=== PATIENT | female | born 1980 | race Caucasian/White ===

== ENCOUNTER 2024-02-12 16:24 | Emergency (ER) | payer MEDICAID, SELFPAY ==
--- NOTE | ~2024-02-12 | CT_ITS ---
EXAMINATION: CT HEAD WITHOUT CONTRAST CT CERVICAL SPINE WITHOUT CONTRAST CLINICAL INFORMATION: OD, possible fall COMPARISON: None. TECHNIQUE: Imaging was performed from the skull base to vertex without intravenous administration of contrast. In addition, helical noncontrast CT imaging was acquired through the cervical spine and source images were reviewed along with axial reconstructions and sagittal and coronal MPRs. [This CT examination was performed using dose optimization techniques as appropriate, variously including the following: *Automated exposure control *Adjustment of mA and/or kV according to patient size (this includes techniques or standardized protocols for targeted exams where dose is matched to indication/reason for exam; i.e. extremities or head) *Use of iterative reconstruction technique] DLP: 1159 mGy-cm FINDINGS: HEAD: No intracranial mass, hemorrhage, or midline shift is visualized. The ventricles and sulci are proportional. No extra-axial collections are identified. The paranasal sinuses and mastoid air cells are well aerated. CERVICAL SPINE: There is no evidence of acute cervical spine fracture. Vertebral bodies remain normal in height. Cervical vertebrae have normal alignment. Cervical disc heights are normal. Facet joints are normal. No pre- or paravertebral soft tissue abnormality is identified. Limited assessment of the lung apices is unremarkable. CT/CT head/brain wo IV con IMPRESSION: 1. No acute intracranial pathology. 2. No CT evidence of acute cervical spine fracture or traumatic subluxation
--- NOTE | ~2024-02-12 | CT_ITS ---
EXAMINATION: CT CHEST WITH CONTRAST CLINICAL INFORMATION: Syncope versus overdose. Tachycardia with history of PE COMPARISON: None available. TECHNIQUE: Multidetector volumetric CT imaging of the chest was obtained after the administration of 65 mL of Omnipaque 350 intravenous contrast without immediate adverse reactions. Axial MIP volume rendering provided. Sagittal and coronal reformatted images were obtained. This CT examination was performed using dose optimization techniques as appropriate, variously including the following: *Automated exposure control *Adjustment of mA and/or kV according to patient size (this includes techniques or standardized protocols for targeted exams where dose is matched to indication/reason for exam; i.e. extremities or head) *Use of iterative reconstruction technique DLP: 247 mGy-cm FINDINGS: LUNGS: Minimal dependent linear atelectasis at the right lung base. No dense consolidation or focal airspace disease otherwise. No nodularity MEDIASTINUM: The mediastinum is normal. Specifically I do not appreciate any obvious central PTE although the examination is not timed to evaluate the pulmonary arteries PLEURA: There is no pleural effusion. No pleural mass or thickening. AXILLA: No lymphadenopathy. UPPER ABDOMEN: Diffuse fatty infiltration of the liver. OSSEOUS STRUCTURES: Unremarkable. CT/CT chest w IV con IMPRESSION: 1. Minimal dependent atelectasis at the right lung base. No dense consolidation or focal airspace disease otherwise. Specifically I do not appreciate any obvious central PTE although the examination is not timed to evaluate the pulmonary arteries. 2. Diffuse fatty infiltration of the liver. Fleischner guidelines were followed.
--- NOTE | ~2024-02-12 | CT_ITS ---
EXAMINATION: CT HEAD WITHOUT CONTRAST CT CERVICAL SPINE WITHOUT CONTRAST CLINICAL INFORMATION: OD, possible fall COMPARISON: None. TECHNIQUE: Imaging was performed from the skull base to vertex without intravenous administration of contrast. In addition, helical noncontrast CT imaging was acquired through the cervical spine and source images were reviewed along with axial reconstructions and sagittal and coronal MPRs. [This CT examination was performed using dose optimization techniques as appropriate, variously including the following: *Automated exposure control *Adjustment of mA and/or kV according to patient size (this includes techniques or standardized protocols for targeted exams where dose is matched to indication/reason for exam; i.e. extremities or head) *Use of iterative reconstruction technique] DLP: 1159 mGy-cm FINDINGS: HEAD: No intracranial mass, hemorrhage, or midline shift is visualized. The ventricles and sulci are proportional. No extra-axial collections are identified. The paranasal sinuses and mastoid air cells are well aerated. CERVICAL SPINE: There is no evidence of acute cervical spine fracture. Vertebral bodies remain normal in height. Cervical vertebrae have normal alignment. Cervical disc heights are normal. Facet joints are normal. No pre- or paravertebral soft tissue abnormality is identified. Limited assessment of the lung apices is unremarkable. CT/CT cervical spine wo IV con IMPRESSION: 1. No acute intracranial pathology. 2. No CT evidence of acute cervical spine fracture or traumatic subluxation
[2024-02-12 16:30] VITALS: BP 126/82; PULSE 110; O2SAT 98
[2024-02-12 16:43] VITALS: BP 118/73; PULSE 102; RESP 16; TEMP 37.3; O2SAT 96; BMI 34.1
--- NOTE | 2024-02-12 16:57 | ECG_ITS ---
Test Reason : OVERDOSE Blood Pressure : / mmHG Vent. Rate : 096 BPM Atrial Rate : 096 BPM P-R Int : 162 ms QRS Dur : 082 ms QT Int : 386 ms P-R-T Axes : 038 032 023 degrees QTc Int : 487 ms Normal sinus rhythm Prolonged QT Abnormal ECG No previous ECGs available Referred By: Amanda Dowd Electronically Signed By:YORDY MOSLEY MD
[2024-02-12 17:16] LABS: MANUAL DIFF FLAG NO
[2024-02-12 17:19] LABS: Basophils Percent Auto 0.3 % (0-2); Eosinophils Absolute Auto 0.1 X10*3/uL (0.0-0.4); Eosinophils Percent Auto 1.1 % (0-4); Hematocrit 38.3 % (37.0-47.0); Hemoglobin 13.2 g/dl (12.0-16.0); Imm Gran Abs Auto 0.02 X10*3/uL (0.00-0.03); Imm Gran Pct Auto 0.2 % (0.0-0.4); Lymphocytes Absolute Auto 1.1 X10*3/uL (1.2-4.9); Lymphocytes Percent Auto 11.2 % (20-40); Mean Corpuscular HGB Conc 34.5 g/dl (31.0-35.0); Mean Platelet Volume 9.7 fL (9.4-12.3); Monocytes Absolute Auto 0.3 X10*3/uL (0.1-1.2); Monocytes Percent Auto 3.4 % (2-11); Neutrophils Percent Auto 83.8 % (45-73); Platelet Count 221 X10*3/uL (160-400); Red Cell Distribution Width 14.6 % (11.0-16.0); White Blood Count 9.5 X10*3/uL (4.8-10.8)
[2024-02-12 17:41] LABS: Alanine Aminotransferase 37 U/L (0-31); Alkaline Phosphatase 78 U/L (39-117); Anion Gap 13 (12-20); Aspartate Amino Transferase 36 U/L (5-31); Bilirubin Direct 0.2 mg/dL (0.0-0.5); Bilirubin Total 0.4 mg/dL (0.0-1.0); Blood Urea Nitrogen 13 mg/dL (9-16); Carbon Dioxide 24 mmol/L (22-29); Chloride 107 mmol/L (96-108); Creatinine Clr Calc Pharmacy 89.2; Estimated Glomerular Filt Rate > 60; Ethanol < 10 mg/dL; Glucose Random 156 mg/dL (60-115); HCG Quantitative < 2 mIU/mL; Potassium 3.4 mmol/L (3.3-5.1); Sodium 141 mmol/L (135-145); Total Protein 6.5 g/dL (6.5-8.0)
--- NOTE | 2024-02-12 17:45 | PC.NURSE ---
pt biba from home d/t accidental overdose. pt verbalizes relapsing after a few months. 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 pt does not recall event - states she woke up on the bathroom floor after PD administered 12mg narcan. pt unaware on if she hit her head but verbalizes 5/10 LUKE. denies change in vision/lightheadedness/dizziness. c-collar placed by EMS. pt searched by security d/t pt remaining in c-collar. climate change risk assessor not performed/belongings remain on pt. labs obtained/ekg performed by tech.pt waiting for CT to be completed at this time. no sob/wob noted. respirations even/unlabored. plan of care ongoing. call aviles placed within reach.
[2024-02-12 18:00] VITALS: BP 125/55; PULSE 99; RESP 18; TEMP 36.9; O2SAT 97
--- NOTE | 2024-02-12 18:32 | ED_ITS ---
HPI - Overdose General Chief Complaint: Overdose Stated Complaint: OD Time Seen by Provider: 02/12/24 16:38 Source: patient and other ( significant other) Mode of arrival: ambulatory Limitations: no limitations History of Present Illness ED Provider: Dr. Amanda Dowd HPI Narrative: patient comes to the emergency room after overdosing. Patient states that earlier today she was in the bathroom at home smoking crack cocaine. Patient woke up on the floor after patient is family and significant other found her in the bathroom unresponsive. Patient had pulse and was breathing. PD was called, they administered 12 mg of Narcan, patient woke up immediately. Patient is adamant that she did not need to hurt herself, was unaware that were any narcotics in the cocaine. Patient states that she had been cleaned for months and recently relapsed. Patient states that she has not sure if she passed out or hit her head. Patient denies any seizure disorder. Related Data Allergies Allergy/AdvReac Type Severity Reaction Status Date / Time codeine [CODEINE] Allergy Unknown HIVES Verified 02/12/24 16:43 levofloxacin [From Levaquin] Allergy Hives Verified 02/12/24 16:43 naproxen [From Aleve] Allergy Anaphylaxis Verified 02/12/24 16:43 Review of Systems 2 Review of Systems: Constitutional : No Weight loss, No Fever, No Chills, No Night Sweats, No Fatigue, No Malaise ENT/Mouth : No Hearing loss, No Ear Pain, No Nasal Congestion, No Sinus Pain, No Hoarseness, No sore throat, No Rhinorrhea, No Swallowing Difficulty Eyes: No Eye Pain, No Swelling, No Redness, No Foreign Body, No Discharge, No Vision Changes Cardiovascular : No Chest Pain, No SOB, No Dyspnea on Exertion, No Orthopnea, No Edema, No Palpitations Respiratory : No Cough, No Sputum, No Wheezing, No Smoke Exposure, No Dyspnea Gastrointestinal : No Nausea, No Vomiting, No Diarrhea, No Constipation, No abdominal Pain, No Hematochezia, No Melena Genitourinary : no irregular bleeding, No Dysuria, No Urinary Frequency, No Hematuria, No Urinary Incontinence, No Urgency, No Flank Pain, No Urinary Flow Changes, No Hesitancy Musculoskeletal : No joint pain, No Myalgias, No Joint Swelling Skin : No Skin Lesions, No rash Neuro : No Weakness, No Numbness, No Paresthesias, 1 episode of loss of consciousness, most likely overdose. No Dizziness, No Headache Psych : No Anxiety/Panic, No Depression, No SI/HI/AH/VH, Admits to polysubstance abuse Heme/Lymph: No Bruising, No Bleeding,No Lymphadenopathy Endocrine : No Polyuria, No Polydipsia, No Temperature Intolerance PMF Past Medical History Medical History (Updated 02/12/24 @ 20:50 by Amanda Dowd MD) Pulmonary embolism Polysubstance abuse Social History Social History Smoked in Last 30 Days: No Use of substances other than those prescribed or required for medical reasons: Yes Substance Use Type: Crack/Cocaine Advance Directives: No Advance Directives Information Provided: No Do you have a plan to hurt others: No Plan Patient : No Physical Exam 2 Vital Signs: Vital Signs: Last Vital Signs Temp 98.4 F 02/12/24 18:00 Pulse 99 02/12/24 18:00 Resp 18 02/12/24 18:00 BP 125/55 L 02/12/24 18:00 Pulse Ox 97 02/12/24 18:00 O2 Del Method Room Air 02/12/24 18:00 BMI result Body Mass Index 34.1 Const: Other: Appearance: Alert. Oriented X3. No acute distress. Eyes: Pupils equal, round and reactive to light. ENT: Pharynx normal. Neck: on C-collar, no palpable step-offs, no pain to palpation in the cervical spine. CVS: Normal heart rate and rhythm. Pulses normal. Normal S1 and S2 Respiratory: No respiratory distress. Breath sounds normal. No Wheezing. No rales Abdomen: Soft and nontender. No rigidity. No distention. Skin: Skin warm and dry. Normal skin color. Normal skin turgor. Extremities: No lower extremity edema. No Lacerations. No Rash Neuro: Oriented X 3. No motor deficit. No sensory deficit. Moving all extremities. No slurred speech. CN 2 through 12 grossly intact Psych: calm, cooperative, normal affect Medications Administered Discontinued Medications Generic Name Dose Route Start Last Admin Trade Name Freq PRN Reason Stop Dose Admin Iohexol 65 ml 02/12/24 19:38 02/12/24 19:39 Iohexol 350 Mg/Ml 100 Ml Infus..Btl IV 02/12/24 19:39 65 ml ONCE ONE Administration Medical Decision Making Medical Decision Making MDM Narrative: - My interpretation of head CT: No intracranial bleed. - My interpretation of labs: Normal hematology and chemistry. urine toxicology pending, ETOH negative, urine toxicology positive for opiates, fentanyl and cocaine - my interpretation of CT scan of the chest, no obvious PE - patient is loss of consciousness secondary to overdose most likely. - Patient is now awake, alert and oriented x3, denies any suicidal or homicidal ideation. -sude/care Team consult declined - patient awake, alert and oriented x3, ambulatory without assistance, vitals normal, no oxygen desaturation Differential Diagnosis Differential Diagnoses: The differential diagnosis associated with the presentation includes ( PE, ACS, overdose) Admission/Observation Consideration of admission/observation: Escalation of care including admission/observation considered ( given patient's past medical history and presentation, observation considered) Lab Data [facility] Lab Attestation statement: I reviewed the patient's lab results. 02/12/24 17:12 02/12/24 17:12 Labs: Lab Results 02/12/24 02/12/24 02/12/24 Range/Units 17:12 18:48 19:15 WBC 9.5 (4.8-10.8) X10*3/uL RBC 4.40 (4.20-5.50) X10*6/uL Hgb 13.2 (12.0-16.0) g/dl Hct 38.3 (37.0-47.0) % MCV 87.0 (80.0-98.0) fL MCH 30.0 (27.0-33.0) pg MCHC 34.5 (31.0-35.0) g/dl RDW 14.6 (11.0-16.0) % Plt Count 221 (160-400) X10*3/uL MPV 9.7 (9.4-12.3) fL Immature Gran % (Auto) 0.2 (0.0-0.4) % Neut % (Auto) 83.8 H (45-73) % Lymph % (Auto) 11.2 L (20-40) % [place] % (Auto) 3.4 (2-11) % Eos % (Auto) 1.1 (0-4) % Baso % (Auto) 0.3 (0-2) % Lymph # (Auto) 1.1 L (1.2-4.9) X10*3/uL [place] # (Auto) 0.3 (0.1-1.2) X10*3/uL Eos # (Auto) 0.1 (0.0-0.4) X10*3/uL Baso # (Auto) 0.0 (0.0-0.2) X10*3/uL Abs Immat Gran (auto) 0.02 (0.00-0.03) X10*3/uL Absolute Neuts (auto) 8.0 (2.0-8.3) x10*3/uL Absolute Nucleated RBC 0.000 (0.0-0.012) X10*3/uL Nucleated RBC % (auto) 0.0 (0.0-0.2) /100WBC PT 12.2 (11.1-13.3) SEC INR 1.0 (0.9-1.1) D-Dimer High Sensitivty 299 NG/ML Sodium 141 (135-145) mmol/L Potassium 3.4 (3.3-5.1) mmol/L Chloride 107 (96-108) mmol/L Carbon Dioxide 24 (22-29) mmol/L Anion Gap 13 (12-20) BUN 13 (9-16) mg/dL Creatinine 0.87 (0.5-1.4) mg/dL Estim Creat Clear Calc 89.2 Estimated GFR > 60 Random Glucose 156 H (60-115) mg/dL Calcium 9.0 (8.4-10.2) mg/dL Magnesium 2.0 (1.6-2.6) mg/dL Total Bilirubin 0.4 (0.0-1.0) mg/dL Direct Bilirubin 0.2 (0.0-0.5) mg/dL AST 36 H (5-31) U/L ALT 37 H (0-31) U/L Alkaline Phosphatase 78 (39-117) U/L Troponin I High Sens 12.5 (<3.5-17.0) ng/L Total Protein 6.5 (6.5-8.0) g/dL Albumin 4.0 (3.5-5.0) g/dL Beta HCG, Quant < 2 mIU/mL Urine Opiates Screen POSITIVE H (Not Detect) Ur Buprenorphine Scrn Not Detected (Not Detect) ng/mL Ur Oxycodone Screen Not Detected (Not Detect) ng/mL Urine Methadone Screen Not Detected (Not Detect) ng/mL Urine Fentanyl Screen POSITIVE H (Not Detect) Ur Barbiturates Screen Not Detected (Not Detect) Ur Phencyclidine Scrn Not Detected (Not Detect) Ur Amphetamines Screen Not Detected (Not Detect) U Benzodiazepines Scrn Not Detected (Not Detect) Urine Cocaine Screen POSITIVE H (Not Detect) U Marijuana (THC) Screen Not Detected (Not Detect) Ethyl Alcohol < 10 mg/dL Independent Interpretation I performed an independent interpretation of an: CT Scan Radiology Impression Discussion of test interpretation with radiology: I have reviewed the radiologist's reading. Radiologist Impression: FINDINGS: LUNGS: Minimal dependent linear atelectasis at the right lung base. No dense consolidation or focal airspace disease otherwise. No nodularity MEDIASTINUM: The mediastinum is normal. Specifically I do not appreciate any obvious central PTE although the examination is not timed to evaluate the pulmonary arteries PLEURA: There is no pleural effusion. No pleural mass or thickening. AXILLA: No lymphadenopathy. UPPER ABDOMEN: Diffuse fatty infiltration of the liver. OSSEOUS STRUCTURES: Unremarkable. CT/CT chest w IV con IMPRESSION: 1. Minimal dependent atelectasis at the right lung base. No dense consolidation or focal airspace disease otherwise. Specifically I do not appreciate any obvious central PTE although the examination is not timed to evaluate the pulmonary arteries. 2. Diffuse fatty infiltration of the liver Independent Historian Clinical information obtained from an independent historian. History obtained from or confirmed by: Other ( significant other) Discharge Plan Discharge Clinical Impression: Polysubstance abuse, Accidental overdose Patient Disposition: Home, Self-Care Instructions: Adult Overdose (ED), Polysubstance Abuse (ED) Additional Instructions: Please follow-up with your primary care physician tomorrow. If you have any worsening or new symptoms, please return to the emergency room or call 911 Print Language: Greek
[2024-02-12 18:49] LABS: Troponin-I High Sensitivity 12.5 ng/L (<3.5-17.0)
--- NOTE | 2024-02-12 18:55 | PC.NURSE ---
pt no longer in c-collar at this time. pt ambulatory to the restroom independently w/ steady gait. pt changed over. belongings placed in decon. urine obtained/sent to lab. labs obtained/sent to lab. plan of care ongoing.
[2024-02-12 19:31] LABS: Prothrombin Time 12.2 SEC (11.1-13.3)
[2024-02-12 19:33] LABS: Amphetamine Screen Urine Not Detected (Not Detect); Barbiturates, Urine Not Detected (Not Detect); Benzodiazepines Screen Urine Not Detected (Not Detect); Buprenorphine Scr Not Detected (Not Detect); Cannabinoid Screen Urine Not Detected (Not Detect); Cocaine Screen Urine POSITIVE (Not Detect); Fentanyl, urine POSITIVE (Not Detect); Methadone Screen, Urine Not Detected (Not Detect); Opiate Screen Urine POSITIVE (Not Detect); Oxycodone Screen Urine Not Detected (Not Detect); Phencyclidine Screen Urine Not Detected (Not Detect)
[2024-02-12 19:33] LABS: D Dimer High Sensitivity 299 NG/ML
[2024-02-12] MEDS: iohexoL 350 MG/ML 100 ML INFUS..BTL 65 ML IV (19:39)
[2024-02-12 20:00] VITALS: BP 126/62; PULSE 87; RESP 16; TEMP 36.9; O2SAT 99
[2024-02-12 21:11] VITALS: BP 126/62; PULSE 87; RESP 16; TEMP 36.9; O2SAT 99
== END 2024-02-12 21:12 | disposition home or self-care (01) ==
PROVIDERS: Emergency Provider Emergency Medicine
DX: S09.90XA Unspecified injury of head, initial encounter (principal); W01.10XA Fall on same level from slipping, tripping and stumbling with subsequent striking against unspecified object, initial encounter; T40.5X1A Poisoning by cocaine, accidental (unintentional), initial encounter; R06.02 Shortness of breath; F14.10 Cocaine abuse, uncomplicated; R51.9 Headache, unspecified; R10.2 Pelvic and perineal pain; R07.89 Other chest pain; M54.6 Pain in thoracic spine; R94.31 Abnormal electrocardiogram [ECG] [EKG]; M54.2 Cervicalgia; Y93.9 Activity, unspecified; Y92.9 Unspecified place or not applicable; Y99.8 Other external cause status; Z51.81 Encounter for therapeutic drug level monitoring; Z79.899 Other long term (current) drug therapy
CPT/HCPCS: 36415; 70450; 71260; 72125; 80048; 80076; 80307; 83735; 84484; 84702; 85025; 85379; 85610; 93005; 99284; 99285; Q9967

== ENCOUNTER → 2024-02-12 16:57 | Outpatient (BNV) | payer MEDICAID, SELFPAY | PROVIDERS: Emergency Provider Emergency Medicine; Visit Provider Internal Medicine Cardiovascular Disease | DX: R94.31 Abnormal electrocardiogram [ECG] [EKG] (principal) | CPT/HCPCS: 93010 ==

== ENCOUNTER 2024-03-11 15:56 | Emergency (ER) | payer OTHER, SELFPAY ==
[2024-03-11 16:01] VITALS: BP 131/81; PULSE 112; O2SAT 97; BMI 31.2
[2024-03-11 16:14] VITALS: BP 144/73; PULSE 101; RESP 16; TEMP 36.9; O2SAT 98
--- NOTE | 2024-03-11 16:14 | PC.NURSE ---
pt changed over into hospital attire by security - belongings obtained/placed in decon.
--- NOTE | 2024-03-11 16:14 | PC.NURSE ---
pt biba from home d/t accidental overdose after smoking dime bag of crack/fentanyl. family administered 4mg narcan intranasally. denies SI/HI. a&ox4. vss and up to date aside from being slightly tachy. pt denies pain. has no complaints. pt changed over by secuirty/changed into hospital attire. belongings placed in decon. pt verbalizes to this creative services writer that she is interested in detox services. pt waiting to be seen by ED provider. no sob/wob noted. respirations even/unlabored. plan of care ongoing.
--- NOTE | 2024-03-11 16:29 | ECG_ITS ---
Test Reason : OVERDOSE Blood Pressure : / mmHG Vent. Rate : 083 BPM Atrial Rate : 083 BPM P-R Int : 156 ms QRS Dur : 074 ms QT Int : 384 ms P-R-T Axes : 034 027 019 degrees QTc Int : 451 ms Normal sinus rhythm Cannot rule out Anterior infarct , age undetermined - could be lead positioning, body habitus Abnormal ECG When compared with ECG of 12-FEB-2024 16:58, No significant change was found Referred By: Jacob Montano Electronically Signed By:CINDI RUANO
--- NOTE | 2024-03-11 16:48 | PC.NURSE ---
labs/urine obtained/sent to lab. ekg performed by [facility]. pt continues to rest in no apparent distress. no sob/wob noted. respirations even/unlabored. plan of care ongoing.
--- NOTE | 2024-03-11 16:50 | ED.GENADULT ---
HPI - General Adult General Chief complaint: Overdose Stated complaint: OD, possibly laced crack, 4 doses of narcan by fam Time Seen by Provider: 03/11/24 16:09 Source: patient, RN notes reviewed and old records reviewed Mode of arrival: ambulatory Limitations: no limitations History of Present Illness ED Provider: Dusty HPI narrative: 43-year-old female presents for evaluation substance abuse. Patient reports that she was smoking crack. She believes that the crack cocaine may have been laced with fentanyl. She was found unresponsive by family and given nasal Narcan 4 mg Patient arrives awake, and oriented. She denies any intent to self-harm. She has no medical complaints at this time. She is interested in speaking to somebody regarding detox Related Data Allergies Allergy/AdvReac Type Severity Reaction Status Date / Time codeine [CODEINE] Allergy Unknown HIVES Verified 03/11/24 16:02 levofloxacin [From Levaquin] Allergy Hives Verified 03/11/24 16:02 naproxen [From Aleve] Allergy Anaphylaxis Verified 03/11/24 16:02 Review of Systems Constitutional: Constitutional: Denies body ache(s), Denies chills, Denies fever(s) and Denies headache(s) Eyes: Eyes: Denies blurry vision ENT: Denies vertigo, Denies dizziness and Denies headache(s) Cardiovascular: Cardiovascular: Denies chest pain and Denies chest pain at rest Respiratory: Respiratory: Denies cough Gastrointestinal: Gastrointestinal: Denies abdominal pain and Denies vomiting Musculoskeletal: Musculoskeletal: Denies back pain Integumentary/Breasts: Skin/Breast: Denies rash Neurologic: Denies vertigo, Denies dizziness and Denies headache(s) [facility] Past Medical History Medical History (Updated 03/11/24 @ 17:54 by Jacob Montano) Pulmonary embolism Polysubstance abuse Social History Social History Substance Use Type: Crack/Cocaine Advance Directives: No Advance Directives Information Provided: No Do you have a plan to hurt others: No Plan Physical Exam ED Vital Signs: Vital Signs - 24 hr 03/11/24 16:14 Temperature 98.4 F Pulse Rate 101 H Respiratory Rate 16 Blood Pressure 144/73 H Pulse Oximetry 98 Oxygen Delivery Method Room Air BMI result Body Mass Index 31.2 Const General: healthy appearing, comfortable, no acute distress, alert and awake Nutritional Appearance: well nourished Orientation/consciousness: patient oriented x3 HENMT Head: Yes normocephalic and Yes atraumatic Eyes Eyelids: Yes eyelids normal Conjunctivae: conjunctivae normal Sclerae: sclerae normal Corneas: corneas normal Pupils: Equal, round and reactive pupils present EOM: EOMs intact bilaterally Neck Neck: Yes full ROM Resp Effort & Inspection: normal respiratory effort, able to speak in complete sentences, no audible wheezes and not labored Auscultation: clear to auscultation bilaterally GI Inspection: No distended Palpation (GI): Soft to palpation, not firm, nontender, no guarding and not rigid Skin General skin exam: elasticity normal Neuro General: patient oriented x3 Cranial nerves: Yes Equal, round and reactive pupils present and Yes Bilaterally intact EOM present Cognition (Neuro): normal cognition Extrem Other: Moving all extremities well without any obvious deformities Course Reevaluation(s) Reevaluation #1: Patient remains awake, alert and oriented. She has not yet met with the care team or addiction medicine but is requesting discharge. She has never been suicidal, she is comfortable seeking detox on her own. She is willing to accept him Narcan. All of her questions were answered and she is stable for discharge Time: 17:52 Medical Decision Making Medical Decision Making MDM Narrative: 43-year-old female presents for evaluation of substance abuse. She was given Narcan, she is awake alert oriented with stable vital signs she has no somatic complaints. She is interested in detox, plan for medical clearance and addiction medicine consult Differential Diagnosis Differential Diagnoses: The differential diagnosis associated with the presentation includes Cocaine abuse Fentanyl overdose Opiate overdose Polysubstance abuse Depression Anxiety Lab Data 03/11/24 17:01 03/11/24 16:45 Labs: Lab Results 03/11/24 03/11/24 Range/Units 16:45 17:01 WBC 8.8 (4.8-10.8) X10*3/uL RBC 4.87 (4.20-5.50) X10*6/uL Hgb 14.5 (12.0-16.0) g/dl Hct 43.6 (37.0-47.0) % MCV 89.5 (80.0-98.0) fL MCH 29.8 (27.0-33.0) pg MCHC 33.3 (31.0-35.0) g/dl RDW 14.8 (11.0-16.0) % Plt Count 238 (160-400) X10*3/uL MPV 9.9 (9.4-12.3) fL Immature Gran % (Auto) 0.2 (0.0-0.4) % Neut % (Auto) 82.7 H (45-73) % Lymph % (Auto) 10.7 L (20-40) % [place] % (Auto) 4.8 (2-11) % Eos % (Auto) 1.3 (0-4) % Baso % (Auto) 0.3 (0-2) % Lymph # (Auto) 0.9 L (1.2-4.9) X10*3/uL [place] # (Auto) 0.4 (0.1-1.2) X10*3/uL Eos # (Auto) 0.1 (0.0-0.4) X10*3/uL Baso # (Auto) 0.0 (0.0-0.2) X10*3/uL Abs Immat Gran (auto) 0.02 (0.00-0.03) X10*3/uL Absolute Neuts (auto) 7.3 (2.0-8.3) x10*3/uL Absolute Nucleated RBC 0.000 (0.0-0.012) X10*3/uL Nucleated RBC % (auto) 0.0 (0.0-0.2) /100WBC Sodium 139 (135-145) mmol/L Potassium 4.3 D (3.3-5.1) mmol/L Chloride 109 H (96-108) mmol/L Carbon Dioxide 21 L (22-29) mmol/L Anion Gap 13 (12-20) BUN 8 L (9-16) mg/dL Creatinine 0.78 (0.5-1.4) mg/dL Estim Creat Clear Calc 94.9 Estimated GFR > 60 Random Glucose 131 H (60-115) mg/dL Calcium 9.0 (8.4-10.2) mg/dL Total Bilirubin 0.4 (0.0-1.0) mg/dL AST 36 H (5-31) U/L ALT 53 H (0-31) U/L Alkaline Phosphatase 73 (39-117) U/L Total Protein 6.7 (6.5-8.0) g/dL Albumin 4.1 (3.5-5.0) g/dL Lipase 10 (8-78) U/L Beta HCG, Quant < 2 mIU/mL Salicylates < 5.0 L (15-30) mg/dL Urine Opiates Screen POSITIVE H (Not Detect) Ur Buprenorphine Scrn Not Detected (Not Detect) ng/mL Ur Oxycodone Screen Not Detected (Not Detect) ng/mL Urine Methadone Screen Not Detected (Not Detect) ng/mL Urine Fentanyl Screen POSITIVE H (Not Detect) Acetaminophen < 3 (<30) mcg/mL Ur Barbiturates Screen Not Detected (Not Detect) Ur Phencyclidine Scrn Not Detected (Not Detect) Ur Amphetamines Screen Not Detected (Not Detect) U Benzodiazepines Scrn Not Detected (Not Detect) Urine Cocaine Screen POSITIVE H (Not Detect) U Marijuana (THC) Screen Not Detected (Not Detect) Ethyl Alcohol < 10 mg/dL Discharge Plan Discharge Clinical Impression: Polysubstance abuse, Drug overdose Patient Disposition: Home, Self-Care Instructions: Adult Overdose (ED), Polysubstance Abuse (ED) Additional Instructions: You may return for any consideration of detox. Your also welcome to follow-up with detox on your own You were given Narcan for take home use if necessary Print Language: Ukrainian
[2024-03-11 17:02] LABS: Amphetamine Screen Urine Not Detected (Not Detect); Barbiturates, Urine Not Detected (Not Detect); Benzodiazepines Screen Urine Not Detected (Not Detect); Buprenorphine Scr Not Detected (Not Detect); Cannabinoid Screen Urine Not Detected (Not Detect); Cocaine Screen Urine POSITIVE (Not Detect); Fentanyl, urine POSITIVE (Not Detect); Methadone Screen, Urine Not Detected (Not Detect); Opiate Screen Urine POSITIVE (Not Detect); Oxycodone Screen Urine Not Detected (Not Detect); Phencyclidine Screen Urine Not Detected (Not Detect)
[2024-03-11 17:09] LABS: Basophils Percent Auto 0.3 % (0-2); Eosinophils Absolute Auto 0.1 X10*3/uL (0.0-0.4); Eosinophils Percent Auto 1.3 % (0-4); Hematocrit 43.6 % (37.0-47.0); Hemoglobin 14.5 g/dl (12.0-16.0); Imm Gran Abs Auto 0.02 X10*3/uL (0.00-0.03); Imm Gran Pct Auto 0.2 % (0.0-0.4); Lymphocytes Absolute Auto 0.9 X10*3/uL (1.2-4.9); Lymphocytes Percent Auto 10.7 % (20-40); Mean Corpuscular HGB Conc 33.3 g/dl (31.0-35.0); Mean Corpuscular Hemoglobin 29.8 pg (27.0-33.0); Mean Corpuscular Volume 89.5 fL (80.0-98.0); Mean Platelet Volume 9.9 fL (9.4-12.3); Monocytes Absolute Auto 0.4 X10*3/uL (0.1-1.2); Monocytes Percent Auto 4.8 % (2-11); Neutrophils Absolute Auto 7.3 x10*3/uL (2.0-8.3); Neutrophils Percent Auto 82.7 % (45-73); Platelet Count 238 X10*3/uL (160-400); Red Blood Count 4.87 X10*6/uL (4.20-5.50); Red Cell Distribution Width 14.8 % (11.0-16.0); White Blood Count 8.8 X10*3/uL (4.8-10.8)
[2024-03-11 17:12] LABS: MANUAL DIFF FLAG NO
[2024-03-11 17:12] LABS: Acetaminophen LAB < 3 mcg/mL (<30); Alanine Aminotransferase 53 U/L (0-31); Albumin Level 4.1 g/dL (3.5-5.0); Alkaline Phosphatase 73 U/L (39-117); Anion Gap 13 (12-20); Aspartate Amino Transferase 36 U/L (5-31); Bilirubin Total 0.4 mg/dL (0.0-1.0); Blood Urea Nitrogen 8 mg/dL (9-16); Carbon Dioxide 21 mmol/L (22-29); Chloride 109 mmol/L (96-108); Creatinine Clr Calc Pharmacy 94.9; Estimated Glomerular Filt Rate > 60; Ethanol < 10 mg/dL; Glucose Random 131 mg/dL (60-115); Lipase 10 U/L (8-78); Potassium 4.3 mmol/L (3.3-5.1); Salicylate < 5.0 mg/dL (15-30); Sodium 139 mmol/L (135-145); Total Protein 6.7 g/dL (6.5-8.0)
[2024-03-11 17:18] LABS: HCG Quantitative < 2 mIU/mL
[2024-03-11 18:18] VITALS: BP 132/78; PULSE 82; RESP 16; TEMP 36.9; O2SAT 98
[2024-03-11] MEDS: Naloxone HCl Nasal TAKE HOME 4 MG SPRAY 8 MG NOSTRILALT (18:23)
== END 2024-03-11 18:22 | disposition home or self-care (01) ==
PROVIDERS: Physician Assistant; Emergency Provider Internal Medicine
DX: T40.5X1A Poisoning by cocaine, accidental (unintentional), initial encounter (principal); R40.4 Transient alteration of awareness; R00.0 Tachycardia, unspecified; Y92.9 Unspecified place or not applicable; F19.10 Other psychoactive substance abuse, uncomplicated
CPT/HCPCS: 36415; 80053; 80143; 80179; 80307; 83690; 84702; 85025; 93005; 99284

== ENCOUNTER → 2024-03-11 16:29 | Outpatient (BNV) | payer OTHER, SELFPAY | PROVIDERS: Emergency Provider Internal Medicine; Visit Provider Internal Medicine | DX: R94.31 Abnormal electrocardiogram [ECG] [EKG] (principal); F19.10 Other psychoactive substance abuse, uncomplicated | CPT/HCPCS: 93010 ==

== ENCOUNTER 2024-09-30 01:14 | Emergency (ER) | payer MEDICAID, SELFPAY ==
[2024-09-30 01:21] VITALS: BP 127/72; PULSE 62; RESP 16; TEMP 36.8; O2SAT 98; BMI 31.9
== END 2024-09-30 04:29 | disposition left against medical advice (07) ==
PROVIDERS: Emergency Provider Emergency Medicine
DX: R51.9 Headache, unspecified (principal)
CPT/HCPCS: 99281

== ENCOUNTER 2024-11-24 01:52 | Emergency (ER) | payer SELFPAY | END 2024-11-24 03:55 | disposition home or self-care (01) | PROVIDERS: Emergency Provider Emergency Medicine | DX: M54.42 Lumbago with sciatica, left side (principal) ==